=== PATIENT | male | born 2000 | race African-American/Black ===

== ENCOUNTER 2021-06-15 09:35 | Emergency (ER) | payer BC, OTHER ==
[~2021-06-15] VITALS: Ht 185.4 cm; Wt 99.3 kg
--- NOTE | 2021-06-15 10:35 | NUR ---
Labs drawn and given to commercial construction project manager to be brought to lab. technology training associate in room for CXR.
--- NOTE | 2021-06-15 10:35 | NUR ---
at bedside for MSE.
[2021-06-15 10:49] LABS: HEMATOCRIT 42.3 % (36.7-47.1); MEAN CORPUSCULAR HEMOGLOBIN 28.9 uug (23.8-33.4); MEAN CORPUSCULAR VOLUME 82.9 fL (73.0-96.2); PLATELET COUNT (AUTO) 138 K/uL (152-348)
[2021-06-15 10:50] LABS: CARBON DIOXIDE 27 mmol/L (21-32); CHLORIDE 104 mmol/L (98-107); CREATININE 0.9 mg/dL (0.6-1.3); GLUCOSE 81 mg/dL (74-106); UREA NITROGEN, BLOOD 14 mg/dL (7-18)
--- NOTE | 2021-06-15 11:32 | NUR ---
Removed IV intact, site benign, bandaged. Gave pt d/c instructions, pt verbalized understanding.
[2021-06-15 13:15] LABS: LYMPHOCYTES % (MANUAL) 21 % (38-48)
[2021-06-15 13:16] LABS: EOSINOPHILS % (MANUAL) 1 % (0-8); MONOCYTES % (MANUAL) 14 % (2-10); NEUTROPHILS % (MANUAL) 64 % (40-55)
== END 2021-06-15 11:34 | disposition home or self-care (01) ==
LOC: ER 09:35
DX: R07.9 Chest pain, unspecified (principal)
CPT/HCPCS: 36415; 70030-TC; 71045; 85025; 93005; A4663